=== PATIENT | female | born 1995 | race Caucasian/White ===

== ENCOUNTER 2018-02-23 18:21 | Emergency (ER) | payer OTHER ==
[~2018-02-23] VITALS: Ht 157.5 cm; Wt 108.9 kg
[2018-02-23] MEDS ORDERED: DICLOFENAC SODI75 MG PO (19:12)
[2018-02-23] MEDS ORDERED: CYCLOBENZAPRINE10 MG PO (19:12)
== END 2018-02-23 20:07 | disposition home or self-care (01) ==
LOC: ED 18:21
DX: M54.5 Low back pain (principal); Z91.048 Other nonmedicinal substance allergy status
CPT/HCPCS: 99283